=== PATIENT | male | born 1955 | race Caucasian/White ===

== ENCOUNTER → 2016-11-29 | Outpatient (CLI) | payer OTHER ==
[~2016-11-29] MED LIST: ASPI-345 PO; CEPH-507 PO; CHONDROITIN; HYDR-3754 PO; HYDR-3811 PO; MV M PO; NAPR220C11 PO; NAPR220T66 PO; OMEG300C3 PO; OMEP20CA6 PO; PROBIOTIC1 EACH PO; SUCR1ORA2 PO
--- NOTE | 2016-11-29 17:31 | Diagnostic Imaging Report ---
INDICATION: Chronic generalized abdominal pain. COMPARISON STUDY: Abdomen dated 04/30/14. FINDINGS: Supine and upright views of the abdomen demonstrate no air-fluid levels or free air. Bowel gas pattern appears unremarkable. Mild degenerative changes of the spine are stable. IMPRESSION: There are no acute findings. Dictated by: Dictated on workstation # [id number]
== END ==
LOC: RAD 15:55
PROVIDERS: ATTEND Nurse Practitioner Family
DX: R10.84 Generalized abdominal pain (principal)
CPT/HCPCS: 74020

== ENCOUNTER → 2016-11-29 | Outpatient (REF) | payer OTHER ==
[2016-11-29 09:57] LABS: BASOPHILS % (AUTO) 0 % (0-2); EOSINOPHILS # (AUTO) 0.1 10^3uL; EOSINOPHILS % (AUTO) 1 % (0-4); LYMPHOCYTES # (AUTO) 1.6 X10^3; MEAN CORPUSCULAR HGB CONC 34.5 g/dL (31.0-37.0); MEAN CORPUSCULAR VOLUME 93 FL (80-100); MEAN PLATELET VOLUME 10.3 FL (6.0-9.5); MONOCYTES # (AUTO) 0.5 X10^3; MONOCYTES % (AUTO) 10 % (3-11); NEUTROPHILS # (AUTO) 2.5 X10^3; NEUTROPHILS % (AUTO) 54 % (51-67); PLATELET COUNT 203 10^3uL (150-450); WHITE BLOOD COUNT 4.61 10^3uL (4.0-11.0)
[2016-11-29 10:17] LABS: ALBUMIN 4.6 g/dL (3.4-5.0); ANION GAP 14.7 MEQ/L (3-15); CALCULATED IONIZED CALCIUM 3.8 mg/dL (3.8-4.6)
[2016-11-29 10:21] LABS: MEAN CORPUSCULAR HEMOGLOBIN 31.9 PG (26.0-34.0)
[2016-11-29 10:46] LABS: BILIRUBIN,URINE Negative (Negative); CLARITY,URINE Clear; COLOR,URINE Yellow; GLUCOSE, URINE (UA) Negative (Negative); LEUKOCYTE ESTERASE ,URINE Negative (Negative); PH,URINE 6.5 (5.0 - 8.0); URINE CENTRIFUGED VOLUME 12 mL; UROBILINOGEN,URINE 0.2 mg/dL (0.2-1.0)
== END ==
LOC: LAB 09:37
PROVIDERS: ATTEND Nurse Practitioner Family
DX: R10.84 Generalized abdominal pain (principal); E78.00 Pure hypercholesterolemia, unspecified; K58.9 Irritable bowel syndrome, unspecified
CPT/HCPCS: 80053; 80061; 81003; 81015; 82150; 83690; 84443; 85025

== ENCOUNTER → 2016-11-30 | Outpatient (REF) | payer OTHER | LOC: LAB 16:32 | PROVIDERS: ATTEND Nurse Practitioner Family | DX: R10.84 Generalized abdominal pain (principal) ==